=== PATIENT | female | born 1985 | race American Indian/Alaskan Native ===

== ENCOUNTER 2017-05-02 14:24 | Emergency (ER) | payer OTHER ==
[2017-05-02 16:02] LABS: Basophils # (Auto) 0.1 K/mm3 (0.0-0.1); Eosinophils # (Auto) 0.2 K/mm3 (0.0-0.4); Eosinophils % (Auto) 2.9 % (0.0-4.3); Hematocrit 38.4 % (30.3-42.9); Hemoglobin 12.6 gm/dl (10.1-14.3); Lymphocytes # (Auto) 2.2 K/mm3 (1.2-5.4); Lymphocytes % (Auto) 39.1 % (13.4-35.0); Mean Corpuscular HGB Conc 33 % (30-34); Mean Corpuscular Volume 71 fl (79-97); Monocytes # (Auto) 0.4 K/mm3 (0.0-0.8); Monocytes % (Auto) 7.4 % (0.0-7.3); Platelet Count 254 K/mm3 (140-440); Red Blood Count 5.38 M/mm3 (3.65-5.03); Red Cell Distribution Width 14.4 % (13.2-15.2)
[2017-05-02 16:06] LABS: Mean Corpuscular Hemoglobin 24 pg (28-32)
[2017-05-02 16:08] LABS: Bacteria,Urine 1+ /HPF (Negative); Bilirubin,Urine NEG (Negative); Blood,Urine NEG (Negative); Color,Urine Yellow (Yellow); Mucus,Urine FEW /HPF; Nitrite,Urine NEG (Negative); Protein,Urine <15 mg/dL mg/dL (Negative); Urobilinogen,Urine < 2.0 mg/dL (<2.0)
[2017-05-02 16:14] LABS: HCG Qualitative,Urine Negative (Negative)
[2017-05-02 16:15] LABS: BUN/Creatinine Ratio 17; Blood Urea Nitrogen 10 mg/dL (7-17); Calcium 9.8 mg/dL (8.4-10.2); Hemolysis Index 12; Lipase 23 units/L (13-60)
[2017-05-02 19:37] VITALS: BP 103/62
--- NOTE | 2017-05-02 19:37 | XRay Report ---
FINAL REPORT EXAM: XR CHEST ROUTINE 2V HISTORY: Shortness of breath TECHNIQUE: PA and lateral views of the chest PRIORS: None. FINDINGS: Lines, tubes, and devices: N/A Lungs and pleura: Trachea is normal in position. Lungs are clear of infiltrate, pleural effusion, vascular congestion, or pneumothorax. Cardiomediastinal silhouette: Cardiac and mediastinal silhouettes are unremarkable. Other: Bony structures are intact. IMPRESSION: No acute cardiopulmonary process seen.
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
== END 2017-05-03 00:17 | disposition home or self-care (01) ==
LOC: ED 14:24
DX: M94.0 Chondrocostal junction syndrome [Tietze] (principal); F41.9 Anxiety disorder, unspecified; F17.200 Nicotine dependence, unspecified, uncomplicated; F12.10 Cannabis abuse, uncomplicated
CPT/HCPCS: 36415; 71046; 80048; 81001; 81025; 83690; 84484; 85025; 93005; 93010; 99283

== ENCOUNTER 2018-02-03 16:10 | Emergency (ER) | payer SELFPAY ==
[2018-02-03 16:38] VITALS: BP 117/80
[2018-02-03] MEDS ORDERED: MOTRIN PO ONE (16:41)
[2018-02-03] MEDS ORDERED: MOTRIN ONE (16:43)
[2018-02-03 17:52] LABS: Bacteria,Urine 1+ /HPF (Negative); Bilirubin,Urine NEG (Negative); Blood,Urine NEG (Negative); Color,Urine Yellow (Yellow); Mucus,Urine FEW /HPF; Protein,Urine <15 mg/dL mg/dL (Negative); Urobilinogen,Urine < 2.0 mg/dL (<2.0)
--- NOTE | 2018-02-03 21:25 | Emergency Department Report ---
<NENO RODRIGUEZ Pedro Pablo - Last Filed: 02/04/18 00:43> ED Abdominal Pain HPI - General Chief Complaint: Urogenital-Female Stated Complaint: STOMACH/BACK PAIN - Related Data Previous Rx's Medication Instructions Recorded Last Taken Type Ibuprofen [Motrin] 800 mg PO Q8H PRN #60 tablet 12/31/13 Unknown Rx oxyCODONE /ACETAMINOPHEN [Percocet 1 tab PO Q6HR PRN #30 tablet 12/31/13 Unknown Rx 5/325] Naproxen [Naprosyn TAB] 375 mg PO BID #10 tablet 03/29/14 Unknown Rx medroxyPROGESTERone ACETATE 5 mg PO QDAY #7 tablet 03/29/14 Unknown Rx [Provera] traMADol [Ultram 50 MG tab] 50 mg PO Q6HR PRN #14 tablet 03/29/14 Unknown Rx Ibuprofen [Motrin] 800 mg PO Q8HR PRN 5 Days #30 05/02/17 Unknown Rx tablet Prednisone [predniSONE 5 mg (6-Day 5 mg PO .TAPER #1 tab.ds.pk 05/02/17 Unknown Rx Pack, 21 Tabs)] Naproxen [Naprosyn] 500 mg PO BID PRN #12 tablet 02/04/18 Unknown Rx metroNIDAZOLE [Flagyl] 500 mg PO Q12HR 7 Days #14 tab 02/04/18 Unknown Rx Allergies Allergy/AdvReac Type Severity Reaction Status Date / Time No Known Allergies Allergy Verified 12/25/13 10:47 ED Review of Systems ROS: Stated complaint: STOMACH/BACK PAIN Other details as noted in HPI ED Past Medical Hx - Medications Home Medications: Home Medications Medication Instructions Recorded Confirmed Last Taken Type Ibuprofen [Motrin] 800 mg PO Q8H PRN #60 tablet 12/31/13 Unknown Rx oxyCODONE /ACETAMINOPHEN [Percocet 1 tab PO Q6HR PRN #30 tablet 12/31/13 Unknown Rx 5/325] Naproxen [Naprosyn TAB] 375 mg PO BID #10 tablet 03/29/14 Unknown Rx medroxyPROGESTERone ACETATE 5 mg PO QDAY #7 tablet 03/29/14 Unknown Rx [Provera] traMADol [Ultram 50 MG tab] 50 mg PO Q6HR PRN #14 tablet 03/29/14 Unknown Rx Ibuprofen [Motrin] 800 mg PO Q8HR PRN 5 Days #30 05/02/17 Unknown Rx tablet Prednisone [predniSONE 5 mg (6-Day 5 mg PO .TAPER #1 tab.ds.pk 05/02/17 Unknown Rx Pack, 21 Tabs)] Naproxen [Naprosyn] 500 mg PO BID PRN #12 tablet 02/04/18 Unknown Rx metroNIDAZOLE [Flagyl] 500 mg PO Q12HR 7 Days #14 tab 02/04/18 Unknown Rx ED Course Vital Signs 02/03/18 02/03/18 02/04/18 16:34 16:50 00:19 Temperature 98.7 F Pulse Rate 71 80 Respiratory 16 18 15 Rate Blood Pressure 117/80 O2 Sat by Pulse 100 99 Oximetry - Reevaluation(s) Reevaluation #1: 02/04/18 00:03 Patient stable in no acute distress. Patient reported she has BV and was told that she was going to get a prescription for Flagyl. ED Medical Decision Making - Lab Data Lab Results 02/03/18 02/03/18 Range/Units 17:16 21:29 Urine Color Yellow (Yellow) Urine Turbidity Slightly-cloudy (Clear) Urine pH 7.0 (5.0-7.0) Ur Specific [place] 1.018 (1.003-1.030) Urine Protein <15 mg/dl (Negative) mg/dL Urine Glucose (UA) Neg (Negative) mg/dL Urine Ketones Neg (Negative) mg/dL Urine Blood Neg (Negative) Urine Nitrite Neg (Negative) Urine Bilirubin Neg (Negative) Urine Urobilinogen < 2.0 (<2.0) mg/dL Ur Leukocyte Esterase Neg (Negative) Urine WBC (Auto) 1.0 (0.0-6.0) /HPF Urine RBC (Auto) 2.0 (0.0-6.0) /HPF U Epithel Cells (Auto) 15.0 H (0-13.0) /HPF Urine Bacteria (Auto) 1+ (Negative) /HPF Urine Mucus Few /HPF Urine HCG, Qual Negative (Negative) Urine cultures sent - Radiology Data Radiology results: report reviewed Ultrasound pelvic and transabdominal report reviewed by myself and was dictated by radiologist. Reports 2 small uterine fibroids and right ovarian cyst. Radiology reports that left ovary could not be visualized. Critical care attestation.: If time is entered above; I have spent that time in minutes in the direct care of this critically ill patient, excluding procedure time. ED Disposition Clinical Impression: Vaginal discharge Ovarian cyst Qualifiers: Laterality: right Qualified Code(s): N83.201 - Unspecified ovarian cyst, right side Abdominal pain Qualifiers: Abdominal location: lower abdomen, unspecified Qualified Code(s): R10.30 - Lower abdominal pain, unspecified Disposition: TO HOME OR SELFCARE Is pt being admited?: No Does the pt Need Aspirin: No Condition: Stable Instructions: Ovarian Cyst (ED), Uterine Fibroids (ED), Abdominal Pain (ED) Additional Instructions: follow-up with [facility] in 2-3 days. Take naproxen as prescribed Increased fluid intake if your condition worsens, return to the emergency room Prescriptions: metroNIDAZOLE [Flagyl] 500 mg PO Q12HR 7 Days #14 tab Naproxen [Naprosyn] 500 mg PO BID PRN #12 tablet PRN Reason: abdominal cramping Referrals: [facility] [Provider Group] - 2-3 Days [facility], [Primary Care Provider] - 2-3 Days [facility] [Outside] - 2-3 Days Forms: Work/School Release Form(ED) <CELIA CHACON NINI - Last Filed: 02/06/18 18:48> ED Abdominal Pain HPI - General Source: patient Mode of arrival: Ambulatory Limitations: No Limitations - History of Present Illness Initial Comments: This is a 32-year-old -[place] female presents with pelvic pain and low back pain. Patient states she have pelvic and low back pain since given tubal ligation 4 years ago. She reports pain is worse with intercourse. This morning pain was unbearable last for 3-4 hours. She reports pain sharp and 10 out of 10 on pain scale. Cramps are severe and feel like contractions. She admits to vaginal discharge for one week that is normal discharge without odor. She denies vaginal, frequency, urgency, dysuria, chest pain, nausea or vomiting, or diarrhea. Complaint: abdominal pain -: This morning Location: suprapubic Radiation: none Migration to: no migration Severity: severe Severity scale (0 -10): 10 Quality: cramping Consistency: intermittent Improves With: medication Worsens With: other (intercourse) Associated Symptoms: denies other symptoms Treatments Prior to Arrival: NSAIDs - Related Data LMP Date: 01/14/18 ED Review of Systems Constitutional: denies: chills, fever Respiratory: denies: cough, shortness of breath, wheezing Cardiovascular: denies: chest pain, palpitations Gastrointestinal: abdominal pain (suprapubic pain). denies: nausea, diarrhea Genitourinary: denies: urgency, dysuria, discharge Musculoskeletal: back pain (low back pain). denies: joint swelling, arthralgia Skin: denies: rash, lesions Neurological: denies: headache, weakness, paresthesias Psychiatric: denies: anxiety, depression ED Past Medical Hx - Past Medical History Hx Hypertension: No Hx CVA: No Hx Heart Attack/AMI: No Hx Congestive Heart Failure: No Hx Diabetes: No Hx Deep Vein Thrombosis: No Hx Pulmonary Embolism: No Hx Renal Disease: No Hx Sickle Cell Disease: (trait) Hx Arthritis: No Hx Headaches / Migraines: No Hx Seizures: No Hx Kidney Stones: No Hx Asthma: No Hx COPD: No Hx Tuberculosis: No Hx Dementia: No Hx HIV: No Additional medical history: sickle cell trait - Surgical History Hx Coronary Stent: No Hx Open Heart Surgery: No Hx Pacemaker: No Hx Internal Defibrillator: No Hx Cholecystectomy: No Hx Appendectomy: No Hx Breast Surgery: No Additional Surgical History: D & C--September 2012, TUBILIGATION - Social History Smoking Status: Never Smoker Substance Use Type: None ED Physical Exam - General Limitations: No Limitations General appearance: alert, in no apparent distress - Respiratory Respiratory exam: Present: normal lung sounds bilaterally. Absent: respiratory distress - Cardiovascular Cardiovascular Exam: Present: regular rate, normal rhythm. Absent: systolic murmur, diastolic murmur, rubs, gallop - GI/Abdominal GI/Abdominal exam: Present: soft, tenderness (suprapubic tenderness), normal bowel sounds. Absent: distended, guarding, rebound, rigid, organomegaly, mass - Back Exam Back exam: Present: normal inspection. Absent: CVA tenderness (R), CVA tenderness (L) - Neurological Exam Neurological exam: Present: alert, oriented X3 - Psychiatric Psychiatric exam: Present: normal affect, normal mood - Skin Skin exam: Present: warm, dry, intact, normal color. Absent: rash ED Medical Decision Making - Medical Decision Making Patient was examined by me. Vitals are normal and patient is in no acute distress. Obtained labs and ultrasound pelvic. Urinalysis and urine hCG are unremarkable. Ultrasound pending. Chart signed to BRET Rodriguez V.
[2018-02-03 21:52] LABS: HCG Qualitative,Urine Negative (Negative)
--- NOTE | 2018-02-03 23:28 | Ultrasound Report ---
FINAL REPORT PROCEDURE: US PELVIC COMPLETE TECHNIQUE: Real-time transabdominal sonography in multiple planes of pelvis was performed with image documentation. This examination was performed without Doppler. Vascular abnormalities, including ovarian torsion, will not be detectable without Doppler evaluation. CPT 60383 HISTORY: pelvic pain COMPARISON: Transvaginal pelvic ultrasound also performed today. FINDINGS: The report for this exam was generated using images from both the transabdominal and the transvaginal pelvic ultrasound both of which were performed today. The uterus is anteverted measuring 8.8 x 4.8 x 4.9 centimeter. Two hypoechoic nodular densities are seen 1 in the anterior myometrium measuring 9 millimeters 1 in the posterior myometrium measuring 1.3 centimeters both to the right of midline. The appearance is consistent with uterine fibroids. No other uterine masses are seen. The endometrial stripe appears normal measuring 9.3 millimeter. No fluid is seen in the endometrial canal. Minimal nonspecific free fluid is seen in the cul-de-sac. The right ovary is visualized measuring 3.1 x 2.1 x 2.5 centimeters. Peripheral follicles are visualized as well as an irregular-shaped cyst measuring 1.9 centimeter. Left ovary is not visualized. No abnormal adnexal masses were seen on the left. IMPRESSION: Two small uterine fibroids are visualized. Uterus is otherwise unremarkable. Irregular shaped cyst visualized in the right ovary may represent recently ruptured follicle. Recommend correlation with test to ensure there is no evidence of ectopic . Left ovary was not visualized. No abnormal adnexal masses are seen.
--- NOTE | 2018-02-03 23:31 | Ultrasound Report ---
FINAL REPORT PROCEDURE: US TRANSVAGINAL TECHNIQUE: Real-time transvaginal sonography in multiple planes of the pelvis was performed with image documentation. This examination was performed without Doppler. Vascular abnormalities, including ovarian torsion, will not be detectable without Doppler evaluation. CPT 11968 HISTORY: pelvic pain COMPARISON: Transabdominal pelvic ultrasound also performed today. FINDINGS: The report for this exam was generated using images from both the transabdominal and the transvaginal pelvic ultrasound both of which were performed today. The uterus is anteverted measuring 8.8 x 4.8 x 4.9 centimeter. Two hypoechoic nodular densities are seen 1 in the anterior myometrium measuring 9 millimeters 1 in the posterior myometrium measuring 1.3 centimeters both to the right of midline. The appearance is consistent with uterine fibroids. No other uterine masses are seen. The endometrial stripe appears normal measuring 9.3 millimeter. No fluid is seen in the endometrial canal. Minimal nonspecific free fluid is seen in the cul-de-sac. The right ovary is visualized measuring 3.1 x 2.1 x 2.5 centimeters. Peripheral follicles are visualized as well as an irregular-shaped cyst measuring 1.9 centimeter. Left ovary is not visualized. No abnormal adnexal masses were seen on the left. IMPRESSION: Two small uterine fibroids are visualized. Uterus is otherwise unremarkable. Irregular shaped cyst visualized in the right ovary may represent recently ruptured follicle. Recommend correlation with test to ensure there is no evidence of ectopic . Left ovary was not visualized. No abnormal adnexal masses are seen.
== END 2018-02-04 00:18 | disposition home or self-care (01) ==
LOC: ED 16:10
DX: N83.201 Unspecified ovarian cyst, right side (principal)
CPT/HCPCS: 76830; 76856; 81001; 81025; 87086

== ENCOUNTER 2018-10-09 15:29 | Emergency (ER) | payer SELFPAY ==
--- NOTE | 2018-10-09 16:37 | Emergency Department Report ---
Blank Doc - Documentation Documentation: This is a 33-year-old female that presents with left flank pain with breast te nderness. Denies any urinary symptoms. This initial assessment/diagnostic orders/clinical plan/treatment(s) is/are subject to change based on patient's health status, clinical progression and re-assessment by fellow clinical providers in the ED. Further treatment and workup at subsequent clinical providers discretion. Patient/guardians urged not to elope from the ED as their condition may be serious if not clinically assessed and managed. Initial orders include: 1- Patient sent to [facility] for further evaluation and treatment 2- UA
[2018-10-09 17:30] LABS: HCG Qualitative,Urine Negative (Negative)
[2018-10-09 17:33] LABS: Bacteria,Urine 2+ /HPF (Negative); Bilirubin,Urine NEG (Negative); Blood,Urine NEG (Negative); Color,Urine Yellow (Yellow); Mucus,Urine 3+ /HPF; Urobilinogen,Urine < 2.0 mg/dL (<2.0)
[2018-10-09] MEDS ORDERED: TORADOL IV ONE (19:59)
[2018-10-09] MEDS ORDERED: NACL 0.9% 1000 ML 1,000 ML IV ONE (19:59)
[2018-10-09] MEDS ORDERED: ZOFRAN IV ONE (19:59)
[2018-10-09] MEDS ORDERED: ROCEPHIN/NS 1 GM/50 ML 1 GM/50 ML BAG IV ONE (20:03)
[2018-10-09 20:28] LABS: Basophils # (Auto) 0.1 K/mm3 (0.0-0.1); Basophils % (Auto) 0.6 % (0.0-1.8); Eosinophils # (Auto) 0.1 K/mm3 (0.0-0.4); Eosinophils % (Auto) 1.2 % (0.0-4.3); Hematocrit 41.8 % (30.3-42.9); Lymphocytes # (Auto) 2.7 K/mm3 (1.2-5.4); Lymphocytes % (Auto) 32.1 % (13.4-35.0); Mean Corpuscular HGB Conc 34 % (30-34); Monocytes # (Auto) 0.7 K/mm3 (0.0-0.8); Monocytes % (Auto) 8.7 % (0.0-7.3); Platelet Count 231 K/mm3 (140-440); Red Blood Count 5.98 M/mm3 (3.65-5.03); Red Cell Distribution Width 15.4 % (13.2-15.2)
[2018-10-09 20:45] LABS: Alanine Aminotransferase 15 units/L (7-56); Albumin 4.6 g/dL (3.9-5); BUN/Creatinine Ratio 18; Blood Urea Nitrogen 11 mg/dL (7-17); Hemolysis Index 5
[2018-10-09 20:52] LABS: Mean Corpuscular Volume 70 fl (79-97)
[2018-10-09 20:59] VITALS: BP 116/74
--- NOTE | 2018-10-09 23:31 | Emergency Department Report ---
ED Abdominal Pain HPI - General Chief Complaint: Abdominal Pain Stated Complaint: BREAST/KIDNEY PAIN Time Seen by Provider: 10/09/18 16:36 Source: patient Mode of arrival: Ambulatory Limitations: No Limitations - History of Present Illness Initial Comments: Patient is 33-year-old -Maced[place] female with no past medical history presents to the ED with complaint of acute onset persistent severe bilateral flank pain for the last 3 days. Patient also complains of bilateral breast pain. Patient denies dysuria, urinary frequency and urgency, vaginal bleeding, vaginal discharge, dizziness, hematuria, nausea, vomiting, and fever, chills, low back pain, fall, traumatic injury, no lifting or urinary or bowel incontinence, traumatic injury or headache. MD Complaint: flank pain (bilateral flank pain), other (Bilateral breast pain) -: Sudden, days(s) (3) Location: L flank, R flank, bilateral flank Radiation: none Migration to: no migration Severity: moderate Severity scale (0 -10): 6 Quality: aching, sharp Consistency: constant Improves With: nothing Worsens With: nothing Associated Symptoms: denies other symptoms. denies: nausea, diarrhea, fever, chills, constipation, dysuria, hematemesis, hematochezia, melena, hematuria, anorexia, syncope, other - Related Data LMP (females 10-50): last week Previous Rx's Medication Instructions Recorded Last Taken Type Ibuprofen [Motrin] 800 mg PO Q8H PRN #60 tablet 12/31/13 Unknown Rx oxyCODONE /ACETAMINOPHEN [Percocet 1 tab PO Q6HR PRN #30 tablet 12/31/13 Unknown Rx 5/325] Naproxen [Naprosyn TAB] 375 mg PO BID #10 tablet 03/29/14 Unknown Rx medroxyPROGESTERone ACETATE 5 mg PO QDAY #7 tablet 03/29/14 Unknown Rx [Provera] traMADol [Ultram 50 MG tab] 50 mg PO Q6HR PRN #14 tablet 03/29/14 Unknown Rx Ibuprofen [Motrin] 800 mg PO Q8HR PRN 5 Days #30 05/02/17 Unknown Rx tablet Prednisone [predniSONE 5 mg (6-Day 5 mg PO .TAPER #1 tab.ds.pk 05/02/17 Unknown Rx Pack, 21 Tabs)] Naproxen [Naprosyn] 500 mg PO BID PRN #12 tablet 02/04/18 Unknown Rx metroNIDAZOLE [Flagyl] 500 mg PO Q12HR 7 Days #14 tab 02/04/18 Unknown Rx Cyclobenzaprine HCl [Flexeril 5 MG 5 mg PO Q8H PRN #12 tab 10/09/18 Unknown Rx TAB] Ketorolac [Toradol] 10 mg PO Q8H PRN #20 tablet 10/09/18 Unknown Rx Sulfamethoxazole/Trimethoprim 1 each PO Q12H #20 tablet 10/09/18 Unknown Rx [Bactrim DS TAB] Allergies Allergy/AdvReac Type Severity Reaction Status Date / Time No Known Allergies Allergy Verified 12/25/13 10:47 ED Review of Systems ROS: Stated complaint: BREAST/KIDNEY PAIN Other details as noted in HPI Comment: All other systems reviewed and negative Constitutional: denies: chills, fever Eyes: denies: eye pain, eye discharge, vision change ENT: denies: ear pain, throat pain Respiratory: other (Bilateral breast pain). denies: cough, orthopnea, shortness of breath, wheezing Cardiovascular: denies: chest pain, palpitations Endocrine: no symptoms reported Gastrointestinal: abdominal pain (bilateral flank pain). denies: nausea, diarrhea Genitourinary: other (Bilateral flank pain). denies: urgency, dysuria, discharge Musculoskeletal: denies: back pain, joint swelling, arthralgia Skin: denies: rash, lesions Neurological: denies: headache, weakness, paresthesias Psychiatric: denies: anxiety, depression Hematological/Lymphatic: denies: easy bleeding, easy bruising ED Past Medical Hx - Past Medical History Previous Medical History?: No Hx Hypertension: No Hx CVA: No Hx Heart Attack/AMI: No Hx Congestive Heart Failure: No Hx Diabetes: No Hx Deep Vein Thrombosis: No Hx Pulmonary Embolism: No Hx Renal Disease: No Hx Sickle Cell Disease: (trait) Hx Arthritis: No Hx Headaches / Migraines: No Hx Seizures: No Hx Kidney Stones: No Hx Asthma: No Hx COPD: No Hx Tuberculosis: No Hx Dementia: No Hx HIV: No Additional medical history: sickle cell trait - Surgical History Past Surgical History?: Yes Hx Coronary Stent: No Hx Open Heart Surgery: No Hx Pacemaker: No Hx Internal Defibrillator: No Hx Cholecystectomy: No Hx Appendectomy: No Hx Breast Surgery: No Additional Surgical History: D & C--September 2012, TUBILIGATION - Social History Smoking Status: Current Every Day Smoker Substance Use Type: Alcohol - Medications Home Medications: Home Medications Medication Instructions Recorded Confirmed Last Taken Type Ibuprofen [Motrin] 800 mg PO Q8H PRN #60 tablet 12/31/13 Unknown Rx oxyCODONE /ACETAMINOPHEN [Percocet 1 tab PO Q6HR PRN #30 tablet 12/31/13 Unknown Rx 5/325] Naproxen [Naprosyn TAB] 375 mg PO BID #10 tablet 03/29/14 Unknown Rx medroxyPROGESTERone ACETATE 5 mg PO QDAY #7 tablet 03/29/14 Unknown Rx [Provera] traMADol [Ultram 50 MG tab] 50 mg PO Q6HR PRN #14 tablet 03/29/14 Unknown Rx Ibuprofen [Motrin] 800 mg PO Q8HR PRN 5 Days #30 05/02/17 Unknown Rx tablet Prednisone [predniSONE 5 mg (6-Day 5 mg PO .TAPER #1 tab.ds.pk 05/02/17 Unknown Rx Pack, 21 Tabs)] Naproxen [Naprosyn] 500 mg PO BID PRN #12 tablet 02/04/18 Unknown Rx metroNIDAZOLE [Flagyl] 500 mg PO Q12HR 7 Days #14 tab 02/04/18 Unknown Rx Cyclobenzaprine HCl [Flexeril 5 MG 5 mg PO Q8H PRN #12 tab 10/09/18 Unknown Rx TAB] Ketorolac [Toradol] 10 mg PO Q8H PRN #20 tablet 10/09/18 Unknown Rx Sulfamethoxazole/Trimethoprim 1 each PO Q12H #20 tablet 10/09/18 Unknown Rx [Bactrim DS TAB] ED Physical Exam - General Limitations: No Limitations General appearance: alert, in no apparent distress - Head Head exam: Present: atraumatic, normocephalic, normal inspection - Eye Eye exam: Present: normal appearance, PERRL, EOMI - ENT ENT exam: Present: normal exam, normal orophraynx, mucous membranes moist, TM's normal bilaterally, normal external ear exam - Neck Neck exam: Present: normal inspection, full ROM. Absent: tenderness, meningismus, lymphadenopathy, thyromegaly - Respiratory Respiratory exam: Present: normal lung sounds bilaterally. Absent: respiratory distress, wheezes, rales, rhonchi, chest wall tenderness, accessory muscle use, decreased breath sounds, prolonged expiratory - Cardiovascular Cardiovascular Exam: Present: regular rate, normal rhythm, normal heart sounds. Absent: systolic murmur, diastolic murmur, rubs, gallop - GI/Abdominal GI/Abdominal exam: Present: soft, normal bowel sounds. Absent: distended, tenderness, guarding, rebound, hyperactive bowel sounds, hypoactive bowel sounds, organomegaly - Rectal Rectal exam: Present: deferred - Extremities Exam Extremities exam: Present: normal inspection, full ROM, normal capillary refill - Back Exam Back exam: Present: normal inspection, full ROM, CVA tenderness (R), CVA tenderness (L), muscle spasm, paraspinal tenderness - Neurological Exam Neurological exam: Present: alert, oriented X3, CN II-XII intact, normal gait, reflexes normal - Psychiatric Psychiatric exam: Present: normal affect, normal mood - Skin Skin exam: Present: warm, dry, intact, normal color. Absent: rash ED Course Vital Signs 10/09/18 10/09/18 10/09/18 16:36 20:20 20:57 Temperature 98.6 F 97.6 F Pulse Rate 100 H 88 Respiratory 16 17 16 Rate Blood Pressure 118/80 Blood Pressure 116/74 [Left] O2 Sat by Pulse 100 100 Oximetry - Reevaluation(s) Reevaluation #1: 10/09/18 23:29 Patient is alert and oriented 3 and is not in distress with normal vital signs. Lab test results were reviewed and are unremarkable except for urinalysis that shows significant acute urinary tract infection consistent with her physical exam findings of bilateral CVA tenderness. Patient was treated in the ED with pain medicine, also given normal saline 1 L IV bolus fluids, and Rocephin 1 g IV 1. On reevaluation, patient's pain is well controlled with medications and patient was discharged home on pain medications and antibiotics for the acute urinary tract infection. Patient is advised to follow up with her primary care physician in 7-10 days for reevaluation or return to the ED immediately if symptoms get worse. ED Medical Decision Making - Lab Data Result diagrams: 10/09/18 20:20 10/09/18 20:20 - Medical Decision Making Patient is alert and oriented 3 and is not in distress with normal vital signs. Lab test results were reviewed and are unremarkable except for urinalysis that shows significant acute urinary tract infection consistent with her physical exam findings of bilateral CVA tenderness. Patient was treated in the ED with pain medicine, also given normal saline 1 L IV bolus fluids, and Rocephin 1 g IV 1. On reevaluation, patient's pain is well controlled with medications and patient was discharged home on pain medications and antibiotics for the acute urinary tract infection. Patient is advised to follow up with her primary care physician in 7-10 days for reevaluation or return to the ED immediately if symptoms get worse. - Differential Diagnosis Bilateral flank pains; Acute UTI; Kidney stones, muscle strain/spasm Critical care attestation.: If time is entered above; I have spent that time in minutes in the direct care of this critically ill patient, excluding procedure time. ED Disposition Clinical Impression: Bilateral flank pain, Acute urinary tract infection Fibrocystic breast changes Qualifiers: Laterality: unspecified laterality Qualified Code(s): N60.19 - Diffuse cystic mastopathy of unspecified breast Disposition: TO HOME OR SELFCARE Is pt being admited?: No Does the pt Need Aspirin: No Condition: Stable Instructions: Urinary Tract Infection in Women (ED), Abdominal Pain (ED), Flank Pain (ED) Additional Instructions: Take medications with food, drink plenty of fluids and follow up with your primary care physician or [facility] [employer] physician in 7-10 days for reevaluation. Return to the ED immediately if symptoms get worse. Prescriptions: Sulfamethoxazole/Trimethoprim [Bactrim DS TAB] 1 each PO Q12H #20 tablet Cyclobenzaprine HCl [Flexeril 5 MG TAB] 5 mg PO Q8H PRN #12 tab PRN Reason: Spasms Ketorolac [Toradol] 10 mg PO Q8H PRN #20 tablet PRN Reason: Pain Referrals: DIMITRY MONAHAN MD [Primary Care Provider] - 3-5 Days Time of Disposition: 23:38 Print Language: SAMMARINESE
== END 2018-10-10 00:25 | disposition home or self-care (01) ==
LOC: ED 15:29
DX: N39.0 Urinary tract infection, site not specified (principal); N60.19 Diffuse cystic mastopathy of unspecified breast; D57.3 Sickle-cell trait; F17.200 Nicotine dependence, unspecified, uncomplicated; Z98.51 Tubal ligation status; Z98.890 Other specified postprocedural states
CPT/HCPCS: 36415; 80053; 81001; 81025; 83690; 85025; J0696; J1885; J2405; J7030; 96365; 96375

== ENCOUNTER 2020-11-19 11:20 | Emergency (ER) | payer SELFPAY ==
[2020-11-19 12:12] VITALS: BP 119/72
--- NOTE | 2020-11-19 13:18 | Emergency Department Report ---
ED Female HPI - General Chief complaint: Urogenital-Female Stated complaint: POSS UTI Time Seen by Provider: 11/19/20 12:41 Source: patient Mode of arrival: Ambulatory Limitations: No Limitations - History of Present Illness Initial comments: Patient is a 35-year-old female presents emergency room with complaints of a "possible UTI." She states that she has had symptoms for 1 week. She has associated urinary frequency, urinary urgency, low back pain, suprapubic pressure. She states that she also believes she has bacterial vaginosis which she reports she has had in the past. She states that she has a clear discharge with a fishy odor. She denies any lesions or blisters. She states that she is sexually active with only one partner and she denies any concerns for STDs and politely declines STD testing or treatment. No past medical history. No allergies medications. Last menstrual cycle 10/28/2020. - Related Data Previous Rx's Medication Instructions Recorded Last Taken Type Ibuprofen [Motrin] 800 mg PO Q8H PRN #60 tablet 12/31/13 Unknown Rx oxyCODONE /ACETAMINOPHEN [Percocet 1 tab PO Q6HR PRN #30 tablet 12/31/13 Unknown Rx 5/325] Naproxen [Naprosyn TAB] 375 mg PO BID #10 tablet 03/29/14 Unknown Rx medroxyPROGESTERone ACETATE 5 mg PO QDAY #7 tablet 03/29/14 Unknown Rx [Provera] traMADoL [Ultram 50 MG tab] 50 mg PO Q6HR PRN #14 tablet 03/29/14 Unknown Rx Ibuprofen [Motrin] 800 mg PO Q8HR PRN 5 Days #30 05/02/17 Unknown Rx tablet Prednisone [predniSONE 5 mg (6-Day 5 mg PO .TAPER #1 tab.ds.pk 05/02/17 Unknown Rx Pack, 21 Tabs)] Naproxen [Naprosyn] 500 mg PO BID PRN #12 tablet 02/04/18 Unknown Rx metroNIDAZOLE [Flagyl] 500 mg PO Q12HR 7 Days #14 tab 02/04/18 Unknown Rx Cyclobenzaprine HCl [Flexeril 5 MG 5 mg PO Q8H PRN #12 tab 10/09/18 Unknown Rx TAB] Ketorolac [Toradol] 10 mg PO Q8H PRN #20 tablet 10/09/18 Unknown Rx Sulfamethoxazole/Trimethoprim 1 each PO Q12H #20 tablet 10/09/18 Unknown Rx [Bactrim DS TAB] metroNIDAZOLE [Flagyl] 500 mg PO BID 7 Days #14 tab 11/19/20 Unknown Rx Allergies Allergy/AdvReac Type Severity Reaction Status Date / Time No Known Allergies Allergy Verified 12/25/13 10:47 ED Review of Systems ROS: Stated complaint: POSS UTI Other details as noted in HPI Comment: All other systems reviewed and negative ED Past Medical Hx - Past Medical History Previous Medical History?: Yes Hx Hypertension: No Hx CVA: No Hx Heart Attack/AMI: No Hx Congestive Heart Failure: No Hx Diabetes: No Hx Deep Vein Thrombosis: No Hx Pulmonary Embolism: No Hx Renal Disease: No Hx Sickle Cell Disease: Yes (trait) Hx Arthritis: No Hx Headaches / Migraines: No Hx Seizures: No Hx Kidney Stones: No Hx Asthma: No Hx COPD: No Hx Tuberculosis: No Hx Dementia: No Hx HIV: No Additional medical history: sickle cell trait - Surgical History Past Surgical History?: Yes Hx Coronary Stent: No Hx Open Heart Surgery: No Hx Pacemaker: No Hx Internal Defibrillator: No Hx Cholecystectomy: No Hx Appendectomy: No Hx Breast Surgery: No Additional Surgical History: D & C--September 2012, TUBILIGATION - Social History Smoking Status: Current Every Day Smoker Substance Use Type: Alcohol - Medications Home Medications: Home Medications Medication Instructions Recorded Confirmed Last Taken Type Ibuprofen [Motrin] 800 mg PO Q8H PRN #60 tablet 12/31/13 Unknown Rx oxyCODONE /ACETAMINOPHEN [Percocet 1 tab PO Q6HR PRN #30 tablet 12/31/13 Unknown Rx 5/325] Naproxen [Naprosyn TAB] 375 mg PO BID #10 tablet 03/29/14 Unknown Rx medroxyPROGESTERone ACETATE 5 mg PO QDAY #7 tablet 03/29/14 Unknown Rx [Provera] traMADoL [Ultram 50 MG tab] 50 mg PO Q6HR PRN #14 tablet 03/29/14 Unknown Rx Ibuprofen [Motrin] 800 mg PO Q8HR PRN 5 Days #30 05/02/17 Unknown Rx tablet Prednisone [predniSONE 5 mg (6-Day 5 mg PO .TAPER #1 tab.ds.pk 05/02/17 Unknown Rx Pack, 21 Tabs)] Naproxen [Naprosyn] 500 mg PO BID PRN #12 tablet 02/04/18 Unknown Rx metroNIDAZOLE [Flagyl] 500 mg PO Q12HR 7 Days #14 tab 02/04/18 Unknown Rx Cyclobenzaprine HCl [Flexeril 5 MG 5 mg PO Q8H PRN #12 tab 10/09/18 Unknown Rx TAB] Ketorolac [Toradol] 10 mg PO Q8H PRN #20 tablet 10/09/18 Unknown Rx Sulfamethoxazole/Trimethoprim 1 each PO Q12H #20 tablet 10/09/18 Unknown Rx [Bactrim DS TAB] metroNIDAZOLE [Flagyl] 500 mg PO BID 7 Days #14 tab 11/19/20 Unknown Rx ED Physical Exam - General Limitations: No Limitations General appearance: alert, in no apparent distress - Head Head exam: Present: atraumatic, normocephalic - Eye Eye exam: Present: normal appearance - ENT ENT exam: Present: mucous membranes moist - Respiratory Respiratory exam: Present: normal lung sounds bilaterally. Absent: respiratory distress, wheezes, rales, rhonchi, stridor, chest wall tenderness, accessory muscle use, decreased breath sounds, prolonged expiratory - Cardiovascular Cardiovascular Exam: Present: regular rate, normal rhythm, normal heart sounds. Absent: systolic murmur, diastolic murmur, rubs, gallop - GI/Abdominal GI/Abdominal exam: Present: soft, normal bowel sounds. Absent: distended, tenderness, guarding, rebound, rigid - Speculum exam: Present: other (pt deferred) - Back Exam Back exam: Absent: CVA tenderness (R), CVA tenderness (L) - Neurological Exam Neurological exam: Present: alert, oriented X3 - Psychiatric Psychiatric exam: Present: normal affect, normal mood - Skin Skin exam: Present: warm, dry, intact ED Course Vital Signs 11/19/20 12:11 Temperature 98.6 F Pulse Rate 78 Respiratory 16 Rate Blood Pressure 119/72 [Right] O2 Sat by Pulse 100 Oximetry ED Medical Decision Making - Medical Decision Making Patient is a 35-year-old female presents emergency room with complaints of a "possible UTI." She states that she has had symptoms for 1 week. She has associated urinary frequency, urinary urgency, low back pain, suprapubic pressure. She states that she also believes she has bacterial vaginosis which she reports she has had in the past. She states that she has a clear discharge with a fishy odor. She denies any lesions or blisters. She states that she is sexually active with only one partner and she denies any concerns for STDs and politely declines STD testing or treatment. No past medical history. No allergies medications. Last menstrual cycle 10/28/2020. Vitals are normal. No abdominal tenderness or CVA tenderness on exam. UA is within normal limits. Patient declines pelvic examination. Patient given prescription for Flagyl for vaginosis. Advised patient Please take medication as prescribed. Please follow-up with your primary care doctor for reexamination. Return to emergency room for new or worse symptoms. Critical care attestation.: If time is entered above; I have spent that time in minutes in the direct care of this critically ill patient, excluding procedure time. ED Disposition Clinical Impression: Urinary frequency Vaginitis Qualifiers: Chronicity: acute Qualified Code(s): N76.0 - Acute vaginitis Disposition: TO HOME OR SELFCARE Is pt being admited?: No Does the pt Need Aspirin: No Condition: Stable Instructions: Bacterial Vaginosis, [id number], Urinary Frequency, Adult Additional Instructions: Please take medication as prescribed. Please follow-up with your primary care doctor for reexamination. Return to emergency room for new or worse symptoms. Prescriptions: metroNIDAZOLE [Flagyl] 500 mg PO BID 7 Days #14 tab Referrals: PRIMARY CARE, [Primary Care Provider] - 2-3 Days Time of Disposition: 14:18 Print Language: [place] CITIZEN
[2020-11-19 13:26] LABS: Bilirubin,Urine NEG (Negative); Blood,Urine NEG (Negative); Color,Urine Yellow (Yellow); Mucus,Urine FEW /HPF; Protein,Urine <15 mg/dL mg/dL (Negative); Urobilinogen,Urine < 2.0 mg/dL (<2.0)
[2020-11-19 14:03] LABS: HCG Qualitative,Urine Negative (Negative)
== END 2020-11-19 14:58 | disposition home or self-care (01) ==
LOC: ED 11:20
DX: N76.0 Acute vaginitis (principal); M54.5 Low back pain; R35.0 Frequency of micturition; Z98.890 Other specified postprocedural states; Z79.899 Other long term (current) drug therapy
CPT/HCPCS: 81001; 81025; 99283

== ENCOUNTER 2021-03-02 11:36 | Emergency (ER) | payer SELFPAY ==
--- NOTE | 2021-03-02 12:33 | Emergency Department Report ---
ED Dysuria HPI - HPI Chief Complaint: Urogenital-Female Stated Complaint: VAGINAL DISCHARGE/LUMP IN BREAST Time Seen by Provider: 03/02/21 12:33 Duration: 1 Day Location of Discomfort: Suprapubic Severity: Mild Symptoms: Dysuria: Yes, Frequency: Yes, Suprapubic Pain: Yes, Flank Pain: No, Fever: No, Hematuria: No, Abdominal Pain: No, Previous UTI's: Yes Other History: 35 YO COMES TO ER WITH DYSURIA, WHITE VAG D/C AND "LUMP ON EACH BREAST" FOUND DURING SBE. PT JUST FINISHED MENSES. SHE DOES NOT SEE PCP OR OBGYN. SHERMAN EXPLAINED TO HER THAT BREAST HEALTH IS DETERMINED BY OB- BUT THAT THE CHANGES SHE FEELS COULD BE MENSES RELATED. PT NOT CO FOR PREG. PT HAS NO ABD PAIN. NO BACK PAIN. NO FEVER. NO CHILLS. SHE IS AMBULATORY AND NON ILL APPEARING ED Review of Systems ROS: Stated complaint: VAGINAL DISCHARGE/LUMP IN BREAST Other details as noted in HPI Comment: All other systems reviewed and negative ED Past Medical Hx - Past Medical History Previous Medical History?: Yes Hx Hypertension: No Hx CVA: No Hx Heart Attack/AMI: No Hx Congestive Heart Failure: No Hx Diabetes: No Hx Deep Vein Thrombosis: No Hx Pulmonary Embolism: No Hx Renal Disease: No Hx Sickle Cell Disease: Yes (trait) Hx Arthritis: No Hx Headaches / Migraines: No Hx Seizures: No Hx Kidney Stones: No Hx Asthma: No Hx COPD: No Hx Tuberculosis: No Hx Dementia: No Hx HIV: No Additional medical history: sickle cell trait - Surgical History Hx Coronary Stent: No Hx Open Heart Surgery: No Hx Pacemaker: No Hx Internal Defibrillator: No Hx Cholecystectomy: No Hx Appendectomy: No Hx Breast Surgery: No Additional Surgical History: D & C--September 2012, TUBILIGATION - Family History Family history: no significant - Social History Smoking Status: Current Every Day Smoker Substance Use Type: Alcohol - Medications Home Medications: Home Medications Medication Instructions Recorded Confirmed Last Taken Type Sulfamethoxazole/Trimethoprim 1 each PO Q12H #20 tablet 03/02/21 Unknown Rx [Bactrim DS TAB] Dysuria Exam - Exam General: Vital signs noted. No distress. Alert and acting appropriately. Exam: Yes Moist Mucous Membranes, No CVA Tenderness, No Abdominal Tenderness, No Rigidity or Guarding ED Medical Decision Making - Medical Decision Making Lab Results 03/02/21 Range/Units 13:11 Urine Color Yellow (Yellow) Urine Turbidity Clear (Clear) Urine pH 6.0 (5.0-7.0) Ur Specific [place] 1.021 (1.003-1.030) Urine Protein 30 mg/dl (Negative) mg/dL Urine Glucose (UA) Neg (Negative) mg/dL Urine Ketones Tr (Negative) mg/dL Urine Blood Neg (Negative) Urine Nitrite Neg (Negative) Urine Bilirubin Neg (Negative) Urine Urobilinogen 2.0 (<2.0) mg/dL Ur Leukocyte Esterase Neg (Negative) Urine WBC (Auto) 13.0 H (0.0-6.0) /HPF Urine RBC (Auto) 21.0 (0.0-6.0) /HPF U Epithel Cells (Auto) 21.0 H (0-13.0) /HPF Urine Mucus 2+ /HPF Urine HCG, Qual Negative (Negative) VS NORMAL DOCUMENTED BY RN ABD EXAM WNL NO FEVER NO BACK PAIN NO CVA TENDERNESS PREG NEG UA NOTED ROCEPHIN 1GM GIVEN IN ER DC HOME WITH DC PLAN OF CARE INCLUDING OBGYN AND PCP FOLLOWUP FOR HER BREAST AND OB CONCERNS. PT VERBALIZES UNDERSTANDING OF PLAN OF CARE - Differential Diagnosis RO PREG/UTI/STI Critical care attestation.: If time is entered above; I have spent that time in minutes in the direct care of this critically ill patient, excluding procedure time. ED Disposition Clinical Impression: UTI (urinary tract infection), Breast anomaly Disposition: 01 HOME / SELF CARE / HOMELESS Is pt being admited?: No Does the pt Need Aspirin: No Condition: Stable Instructions: Urinary Tract Infection, Adult Additional Instructions: FOLLOW UP WITH OBGYN FOR BREAST EXAM/ JEFF-- AND YOUR ANNUAL FEMALE EXAM REFERRAL BELOW MEDS ORDERED TODAY SAFE SEX STAY WELL HYDRATED WITH WATER Prescriptions: Sulfamethoxazole/Trimethoprim [Bactrim DS TAB] 1 each PO Q12H #20 tablet Referrals: PRIMARY CARE, [Primary Care Provider] - 3-5 Days GARETH ESPINOZA MD [Staff Physician] - 3-5 Days SHARIF CLAYTON MD [Staff Physician] - 3-5 Days Time of Disposition: 14:26
[2021-03-02 14:02] LABS: Bilirubin,Urine NEG (Negative); Blood,Urine NEG (Negative); Color,Urine Yellow (Yellow); Mucus,Urine 2+ /HPF
[2021-03-02 14:23] LABS: HCG Qualitative,Urine Negative (Negative)
[2021-03-02] MEDS ORDERED: LIDOCAINE-MPF (1%) 10 MG/1 ML VIAL 5 ML INFILTRATI ONE (14:24)
== END 2021-03-02 14:50 | disposition home or self-care (01) ==
LOC: ED 11:36
DX: N39.0 Urinary tract infection, site not specified (principal); N64.89 Other specified disorders of breast; F17.210 Nicotine dependence, cigarettes, uncomplicated; Z86.2 Personal history of diseases of the blood and blood-forming organs and certain disorders involving the immune mechanism; Z98.51 Tubal ligation status
CPT/HCPCS: 81001; 81025; 87086; 96372; 99283; J0696

== ENCOUNTER 2021-03-11 08:49 | Emergency (ER) | payer SELFPAY ==
[2021-03-11 08:55] VITALS: BP 117/72
[2021-03-11] MEDS ORDERED: FLUORESCEIN 1 MG STRIP OP ONE (09:07)
[2021-03-11] MEDS ORDERED: TETRACAINE 0.5% OPHTH SOLN 4ML OU ONE (09:07)
[2021-03-11] MEDS ORDERED: IBUPROFEN 600 MG TAB PO ONE (09:07)
[2021-03-11] MEDS ORDERED: BALANCED SALT IRRIG (BSS) OPHTH SOLN 15 ML OU ONE (09:07)
--- NOTE | 2021-03-11 09:34 | Emergency Department Report ---
ED Eye Problem HPI - General Chief complaint: Eye Problems Stated complaint: RT EYE PAINS Time Seen by Provider: 03/11/21 09:07 Source: patient Mode of arrival: Ambulatory Limitations: No Limitations - History of Present Illness Initial comments: The patient was evaluated in the emergency department for symptoms described in the history of present illness. He/she was evaluated in the context of the global COVID-19 pandemic, which necessitated consideration that the patient might be at risk for infection with the virus that causes COVID-19. Institu tional protocols and algorithms that pertain to the evaluation of patients at risk for COVID-19 are in a state of rapid change based on information released by regulatory bodies including the CDC and federal and state organizations. These policies and algorithms were followed during the patient's care in the emergency department. Please note that these policies, procedures and recommendations changed on a rapid basis. 35-year-old -[place] female presents to the emergency room complaining of right eye pain that started yesterday morning. Patient denies any injury. She states that she has been tearing, pain, watery eye, photophobia. Denies any contact use or glasses. States she took Tylenol last night. She has no known drug allergies and up-to-date on all vaccines. MD chief complaint: eye pain Onset/Timin -: days(s) Onset Description: awoke with symptoms Location: right eye Eye Symptoms: redness, pain, photophobia Severity scale (0 -10): 6 If Pain, Quality: throbbing Consistency: constant Associated Symptoms: none - Related Data Patient Tetanus UTD: Yes Previous Rx's Medication Instructions Recorded Last Taken Type Sulfamethoxazole/Trimethoprim 1 each PO Q12H #20 tablet 03/02/21 Unknown Rx [Bactrim DS TAB] Erythromycin [Erythromycin Ophth 1 strip OU QID 10 Days #1 tube 03/11/21 Unknown Rx Oint] traMADoL [Ultram 50 MG tab] 50 mg PO Q6HR PRN #12 tablet 03/11/21 Unknown Rx Allergies Allergy/AdvReac Type Severity Reaction Status Date / Time No Known Allergies Allergy Verified 03/02/21 11:45 ED Review of Systems ROS: Stated complaint: RT EYE PAINS Other details as noted in HPI Comment: All other systems reviewed and negative ED Past Medical Hx - Past Medical History Previous Medical History?: Yes Hx Hypertension: No Hx CVA: No Hx Heart Attack/AMI: No Hx Congestive Heart Failure: No Hx Diabetes: No Hx Deep Vein Thrombosis: No Hx Pulmonary Embolism: No Hx Renal Disease: No Hx Sickle Cell Disease: Yes (trait) Hx Arthritis: No Hx Headaches / Migraines: No Hx Seizures: No Hx Kidney Stones: No Hx Asthma: No Hx COPD: No Hx Tuberculosis: No Hx Dementia: No Hx HIV: No Additional medical history: sickle cell trait - Surgical History Past Surgical History?: Yes Hx Coronary Stent: No Hx Open Heart Surgery: No Hx Pacemaker: No Hx Internal Defibrillator: No Hx Cholecystectomy: No Hx Appendectomy: No Hx Breast Surgery: No Additional Surgical History: D & C--September 2012, TUBILIGATION - Social History Smoking Status: Current Every Day Smoker Substance Use Type: Alcohol - Medications Home Medications: Home Medications Medication Instructions Recorded Confirmed Last Taken Type Sulfamethoxazole/Trimethoprim 1 each PO Q12H #20 tablet 03/02/21 Unknown Rx [Bactrim DS TAB] Erythromycin [Erythromycin Ophth 1 strip OU QID 10 Days #1 tube 03/11/21 Unknown Rx Oint] traMADoL [Ultram 50 MG tab] 50 mg PO Q6HR PRN #12 tablet 03/11/21 Unknown Rx ED Physical Exam - General Limitations: No Limitations General appearance: alert, in no apparent distress - Head Head exam: Present: atraumatic, normocephalic - Eye Eye exam: Present: normal appearance Pupils: Present: other - Expanded Eye Exam Expanded Eyelids: Normal Inspection: Right Pupils: Regular, Round: Right, Reactive: Right Sclera/Conjunctival: Injection: Right - ENT ENT exam: Present: mucous membranes moist - Neck Neck exam: Present: normal inspection - Respiratory Respiratory exam: Present: normal lung sounds bilaterally. Absent: respiratory distress - Cardiovascular Cardiovascular Exam: Present: regular rate, normal rhythm. Absent: systolic murmur, diastolic murmur, rubs, gallop - GI/Abdominal GI/Abdominal exam: Present: soft, normal bowel sounds - Extremities Exam Extremities exam: Present: normal inspection - Back Exam Back exam: Present: normal inspection - Neurological Exam Neurological exam: Present: alert, oriented X3 - Psychiatric Psychiatric exam: Present: normal affect, normal mood - Skin Skin exam: Present: warm, dry, intact, normal color. Absent: rash ED Course Vital Signs 03/11/21 08:52 Temperature 99.2 F Pulse Rate 86 Respiratory 16 Rate Blood Pressure 117/72 O2 Sat by Pulse 100 Oximetry ED Medical Decision Making - Medical Decision Making 35-year-old -[place] female presents to the emergency room complaining of right eye pain that started yesterday morning. Patient denies any injury. She states that she has been tearing, pain, watery eye, photophobia. Denies any contact use or glasses. States she took Tylenol last night. She has no known drug allergies and up-to-date on all vaccines. Critical care attestation.: If time is entered above; I have spent that time in minutes in the direct care of this critically ill patient, excluding procedure time. ED Disposition Clinical Impression: Corneal abrasion, right Disposition: HOME / SELF CARE / HOMELESS Is pt being admited?: No Does the pt Need Aspirin: No Condition: Stable Instructions: Corneal Abrasion, [id number] Additional Instructions: Please use ophthalmic antibiotic ointment as prescribed. Pain medication as needed. Very important you follow-up with an sales/marketing I have listed their information below for your convenience. Prescriptions: Erythromycin [Erythromycin Ophth Oint] 1 strip OU QID 10 Days #1 tube traMADoL [Ultram 50 MG tab] 50 mg PO Q6HR PRN #12 tablet PRN Reason: Pain Referrals: PRIMARY CARE, [Primary Care Provider] - 3-5 Days MADELINE PARRA MD [Staff Physician] - 3-5 Days Forms: Work/School Release Form(ED) Time of Disposition: 09:38
== END 2021-03-11 09:44 | disposition home or self-care (01) ==
LOC: ED 08:49
DX: S05.01XA Injury of conjunctiva and corneal abrasion without foreign body, right eye, initial encounter (principal); F17.200 Nicotine dependence, unspecified, uncomplicated; Z72.89 Other problems related to lifestyle; Z79.899 Other long term (current) drug therapy; X58.XXXA Exposure to other specified factors, initial encounter; Y93.89 Activity, other specified; Y92.89 Other specified places as the place of occurrence of the external cause; Y99.8 Other external cause status
CPT/HCPCS: 99282